=== PATIENT | female | born 1955 | race African-American/Black ===

== ENCOUNTER 2020-11-16 20:29 | Inpatient (IN) | payer MEDICAID, SELFPAY ==
[~2020-11-16] VITALS: Ht 157.5 cm; Wt 94.0 kg
[2020-11-16 20:29] VITALS: BP_SYST 160
[2020-11-16] MEDS ORDERED: IPRATROPIUM/ALBUTEROL SULFATE 3 ML AMPUL.NEB (DUONEB) INH ONE (20:45)
[2020-11-16] MEDS ORDERED: ATEN-41 PO (20:48)
[2020-11-16] MEDS ORDERED: LOSA25TA3 PO (20:49)
[2020-11-16 21:11] LABS: BASOPHILS % (AUTO) 0.3 % (0.0-2.0); EOSINOPHILS # (AUTO) 0.2 K/uL (0.0-0.4); HEMATOCRIT 32.5 % (36-48); HEMOGLOBIN 10.5 g/dL (12.0-16.0); LYMPHOCYTES # (AUTO) 4.9 K/uL (1.0-5.5); LYMPHOCYTES % (AUTO) 46.3 % (20.5-51.5); MEAN CORPUSCULAR HEMOGLOBIN 25 pg (27-31); MEAN CORPUSCULAR HGB CONC 32 % (32-36); MEAN CORPUSCULAR VOLUME 76 fL (79.0-98.0); MONOCYTES # (AUTO) 0.6 K/uL (0.0-1.0); MONOCYTES % (AUTO) 5.6 % (1.7-9.3); NEUTROPHILS # (AUTO) 4.8 K/uL (1.8-7.7); NEUTROPHILS % (AUTO) 45.8 % (40.0-70.0); PLATELET COUNT (AUTO) 358 K/uL (130-430); RED BLOOD CELL COUNT(AUTO) 4.28 MIL/uL (4.2-6.2); RED CELL DISTRIBUTION WIDTH 17.4 % (9.0-15.0); WHITE BLOOD COUNT (AUTO) 10.6 K/uL (4.8-10.8)
[2020-11-16 21:32] LABS: CALCIUM 8.2 mg/dL (8.4-11.0); CREATININE 1.98 mg/dL (0.55-1.30); POTASSIUM 3.8 mmol/L (3.5-5.1)
[2020-11-16 21:41] LABS: TOTAL BILIRUBIN 0.3 mg/dL (0.0-1.0)
[2020-11-16] MEDS ORDERED: cefTRIAXone 1 GM in D5W 50 ML IV ONE (22:30)
[2020-11-16] MEDS ORDERED: cefTRIAXone 1 GM VIAL ONE (22:53)
[2020-11-17 01:15] VITALS: BP_SYST 154
[2020-11-17] MEDS ORDERED: HYDROcodone/ACETAMIN 10-325 MG TAB PO PRN (06:30)
[2020-11-17] MEDS ORDERED: NALOXONE HCL 0.4 MG/ML AMP (NARCAN) IVP PRN ×2 (06:30)
[2020-11-17] MEDS ORDERED: ONDANSETRON HCL 4 MG/2 ML VIAL IVP PRN (06:30)
[2020-11-17] MEDS ORDERED: HYDROcodone/ACETAMIN 5-325 MG TAB (NORCO/ VICODIN) PO PRN (06:30)
[2020-11-17] MEDS ORDERED: LORazepam 2 MG/ML VIAL IVP PRN (06:30)
[2020-11-17] MEDS ORDERED: ALBUTEROL SULFATE 0.083% 2.5 MG/3 ML VIAL.NEB INH PRN (06:30)
[2020-11-17] MEDS ORDERED: ACETAMINOPHEN 325 MG TABLET PO PRN (06:30)
[2020-11-17 06:43] VITALS: BP_SYST 154
[2020-11-17] MEDS: IPRATROPIUM BROM 0.5 MG/2.5 ML VIAL.NEB (ATROVENT) INH SCH ×3 (07:30→15:54)
[2020-11-17 08:00] VITALS: BP_SYST 160
[2020-11-17] MEDS ORDERED: ATENOLOL 25 MG TABLET(TENORMIN) PO SCH (09:00)
[2020-11-17] MEDS ORDERED: LOSARTAN POTASSIUM 25 MG TABLET PO SCH (09:00)
[2020-11-17 11:55] VITALS: BP_SYST 120
[2020-11-17] MEDS ORDERED: ATENOLOL 25 MG TABLET(TENORMIN) PO ONE (12:30)
[2020-11-17] MEDS ORDERED: SPIRONOLACTONE 25 MG TABLET (ALDACTONE) PO ONE (13:00)
[2020-11-17] MEDS ORDERED: ASPIRIN 81 MG TAB.CHEW PO ONE (13:00)
[2020-11-17] MEDS ORDERED: NORMAL SALINE 5 ML DISP.SYRIN IVF SCH ×2 (14:00)
[2020-11-17 16:52] VITALS: BP_SYST 137
[2020-11-17] MEDS ORDERED: ATEN-167 PO (17:33)
[2020-11-17] MEDS ORDERED: LIP20 PO (17:33)
[2020-11-17] MEDS ORDERED: ASA81 PO (17:33)
[2020-11-17] MEDS ORDERED: SPIR25TA PO (17:33)
[2020-11-17] MEDS ORDERED: LOSA25TA3 PO (17:33)
[2020-11-17] MEDS ORDERED: ATORVASTATIN 20 MG TABLET PO SCH (21:00)
[2020-11-17] MEDS ORDERED: cefTRIAXone 1 GM IVPB PREMIX 50 ML IV SCH (21:00)
[2020-11-18] MEDS ORDERED: ATORVASTATIN 20 MG TABLET PO SCH (09:00)
[2020-11-18] MEDS ORDERED: ASPIRIN 81 MG TAB.CHEW PO SCH (09:00)
[2020-11-18] MEDS ORDERED: SPIRONOLACTONE 25 MG TABLET (ALDACTONE) PO SCH (09:00)
[2020-11-18] MEDS ORDERED: ATENOLOL 50 MG TABLET (TENORMIN) PO SCH (09:00)
== END 2020-11-17 20:22 | disposition home or self-care (01) | DRG 133 ==
LOC: SED 20:29 → STU 11-17 00:14
PROVIDERS: ADMIT Preventive Medicine Preventive Medicine/Occupational Environmental Medicine; ATTEND Preventive Medicine Preventive Medicine/Occupational Environmental Medicine
DX: J96.01 Acute respiratory failure with hypoxia (principal); D64.9 Anemia, unspecified; E66.9 Obesity, unspecified; E78.5 Hyperlipidemia, unspecified; E83.52 Hypercalcemia; E88.09 Other disorders of plasma-protein metabolism, not elsewhere classified; I13.0 Hypertensive heart and chronic kidney disease with heart failure and stage 1 through stage 4 chronic kidney disease, or unspecified chronic kidney disease; I25.10 Atherosclerotic heart disease of native coronary artery without angina pectoris; I25.5 Ischemic cardiomyopathy; I50.9 Heart failure, unspecified; N17.9 Acute kidney failure, unspecified; N18.9 Chronic kidney disease, unspecified; R73.9 Hyperglycemia, unspecified; I43 Cardiomyopathy in diseases classified elsewhere; I08.1 Rheumatic disorders of both mitral and tricuspid valves; I27.21 Secondary pulmonary arterial hypertension; Z68.37 Body mass index [BMI] 37.0-37.9, adult; Z20.828 Contact with and (suspected) exposure to other viral communicable diseases
CPT/HCPCS: 36415; 71045; 78580-TC; 80053; 82550-TC; 83880; 84484; 85025; 85379; 87040-TC; 93005; 93306; 94003; 94640; 94760; 96365; 99285; A9540; G0378; J0696